=== PATIENT | female | born 1955 ===

== ENCOUNTER 2017-03-14 11:26 | Emergency (ER) | payer MEDICARE, OTHER ==
[2017-03-14 11:26] VITALS: BMI 27.4
--- NOTE | 2017-03-14 12:55 | C.PDOC ---
History Of Present Illness 61 y/o female presents to ED with complaints of cough, runny nose, sore throat and body aches for 2 days. Patient denies fever, travel, n/v/d, SAGE or any other complaints at this time. Time Seen by Provider: 03/14/17 12:00 Chief Complaint (Nursing): Cough, Cold, Congestion History Per: Patient History/Exam Limitations: no limitations Onset/Duration Of Symptoms: Days Current Symptoms Are (Timing): Still Present Past Medical History Reviewed: Historical Data, Nursing Documentation, Vital Signs Vital Signs: Last Vital Signs Temp 97.7 F 03/14/17 13:00 Pulse 57 L 03/14/17 13:00 Resp 18 03/14/17 13:00 BP 115/74 03/14/17 13:00 Pulse Ox 96 03/14/17 13:39 - Medical History PMH: Anemia, HTN, Hyperthyroidism, Rheumatoid Arthritis Denies: Colonic Polyps Surgical History: Denies: Endoscopy Family History: States: No Known Family Hx - Social History Hx Alcohol Use: No Hx Substance Use: No - Immunization History Hx Tetanus Toxoid Vaccination: No Hx Influenza Vaccination: No Hx Pneumococcal Vaccination: No Review Of Systems Except As Marked, All Systems Reviewed And Found Negative. Constitutional: Negative for: Fever, Chills ENT: Positive for: Nose Discharge, Throat Swelling Cardiovascular: Negative for: Chest Pain Respiratory: Positive for: Cough Gastrointestinal: Negative for: Nausea, Vomiting, Diarrhea Skin: Negative for: Rash Physical Exam - Physical Exam Appears: Non-toxic, No Acute Distress Skin: Normal Color, Warm, No Rash Head: Atraumatic, Normacephalic Eye(s): bilateral: Normal Inspection, PERRL, EOMI Ear(s): Bilateral: Normal Oral Mucosa: Moist Throat: Normal, No Erythema, No Exudate Neck: Normal ROM, Supple Chest: Symmetrical, No Tenderness Cardiovascular: Rhythm Regular, No Friction Rub, No Murmur Respiratory: Normal Breath Sounds, No Rales, No Rhonchi, No Stridor, No Wheezing Gastrointestinal/Abdominal: Soft, No Tenderness, No Guarding, No Rebound Extremity: Normal ROM, Capillary Refill (<2 seconds), No Swelling Pulses: Left Radial: Normal, Right Radial: Normal, Left Dorsalis Pedis: Normal, Right Dorsalis Pedis: Normal Neurological/Psych: Oriented x3, Normal Speech, Normal Motor, Normal Sensation Gait: Steady ED Course And Treatment O2 Sat by Pulse Oximetry: 96 (on RA) Pulse Ox Interpretation: Normal Disposition - Disposition Referrals: Sunni Harvey MD [Medical Doctor] - Disposition: HOME/ ROUTINE Disposition Time: 12:51 Condition: GOOD Additional Instructions: Follow up with the medical doctor within 1-2 days. Return if worsened. Prescriptions: Ibuprofen [Motrin] 1 tab PO TID PRN #30 tab PRN Reason: Pain Loratadine [Claritin] 10 mg PO DAILY #10 tab predniSONE [Prednisone] 10 mg PO BID #10 tab Instructions: Pharyngitis (ED) Print Language: GEORGIAN - Clinical Impression Clinical Impression: Viral pharyngitis - Scribe Statement The provider has reviewed the documentation as recorded by the Juliethibfco Grace All medical record entries made by the Kristi were at my direction and personally dictated by me. I have reviewed the chart and agree that the record accurately reflects my personal performance of the history, physical exam, medical decision making, and the department course for this patient. I have also personally directed, reviewed, and agree with the discharge instructions and disposition.
[2017-03-14 13:09] VITALS: BP 115/74; PULSE 57; RESP 18; TEMP 97.7
[2017-03-14 13:35] VITALS: O2SAT 96
== END 2017-03-14 13:00 | disposition home or self-care (01) ==
LOC: C.ER 11:26
DX: J02.9 Acute pharyngitis, unspecified (principal)

== ENCOUNTER 2017-09-17 01:43 | Inpatient (IN) | payer MEDICARE, OTHER ==
[2017-09-17 01:44] VITALS: BMI 27.4
--- NOTE | 2017-09-17 03:17 | C.PDOC ---
History Of Present Illness patient presents with 36 hours of sudden onset of llq abdominal pain. No f/c/n/ v. some dysuria. tolerating po. Pain is intermittent. Time Seen by Provider: 09/17/17 03:16 Chief Complaint (Nursing): Abdominal Pain History Per: Patient History/Exam Limitations: no limitations Onset/Duration Of Symptoms: Days (1) Current Symptoms Are (Timing): Still Present Context: Other Severity: Moderate Pain Scale Rating Of: 4 Location Of Pain/Discomfort: LLQ Radiation Of Pain To:: Flank Quality Of Discomfort: Sharp, Cramping Associated Symptoms: denies: Fever, Chills, Nausea, Vomiting Exacerbating Factors: None Alleviating Factors: None Recent travel outside of the [place]: No Additional History Per: Family Abnormal Vaginal Bleeding: No Past Medical History Reviewed: Historical Data, Nursing Documentation, Vital Signs Vital Signs: Last Vital Signs Temp 98.1 F 09/17/17 05:43 Pulse 57 L 09/17/17 05:43 Resp 18 09/17/17 05:43 BP 162/76 H 09/17/17 05:43 Pulse Ox 97 09/17/17 05:43 - Medical History PMH: Anemia, HTN, Hyperthyroidism, Rheumatoid Arthritis Denies: Colonic Polyps Surgical History: Denies: Endoscopy Family History: States: No Known Family Hx - Social History Hx Alcohol Use: No Hx Substance Use: No - Immunization History Hx Tetanus Toxoid Vaccination: No Hx Influenza Vaccination: No Hx Pneumococcal Vaccination: No Review Of Systems Constitutional: Negative for: Fever, Chills Eyes: Negative for: Redness ENT: Negative for: Throat Pain Cardiovascular: Negative for: Chest Pain Respiratory: Negative for: Shortness of Breath Gastrointestinal: Positive for: Abdominal Pain (llq). Negative for: Nausea, Vomiting Musculoskeletal: Negative for: Back Pain Skin: Negative for: Rash Neurological: Negative for: Weakness Psych: Negative for: Anxiety Physical Exam - Physical Exam Appears: Non-toxic, No Acute Distress Skin: Warm, Dry Head: Normacephalic Eye(s): bilateral: Normal Inspection Oral Mucosa: Moist Neck: Supple Chest: Symmetrical Cardiovascular: Rhythm Regular Respiratory: No Rales, No Rhonchi, No Wheezing Gastrointestinal/Abdominal: Soft, Tenderness (llq), No Distention, No Guarding, No Rebound Back: No CVA Tenderness Extremity: Normal ROM Extremity: Bilateral: Atraumatic Neurological/Psych: Oriented x3, Normal Speech, Normal Cognition Gait: Steady ED Course And Treatment - Laboratory Results Result Diagrams: 09/17/17 04:04 09/17/17 04:04 ECG: Interpreted By Me, Viewed By Me ECG Rhythm: Sinus Rhythm (58), Nonspecific Changes O2 Sat by Pulse Oximetry: 96 Pulse Ox Interpretation: Normal Disposition Counseled Patient/Family Regarding: Studies Performed, Diagnosis - Disposition Disposition Time: 03:17 Condition: FAIR Forms: [facility] (Armenian) - Clinical Impression Clinical Impression: Abdominal pain Physician Patient Turnover Patient Signed Over To: Kamryn Black Handoff Comments: pending ct results and disposition
[2017-09-17 04:10] LABS: BASO # 0.1 K/uL (0.0-0.2)
[2017-09-17 04:12] LABS: SQUAMOUS EPITHIAL 3 /hpf (0-5); URINE BILIRUBIN NEGATIVE (NEGATIVE); URINE BLOOD NEGATIVE (NEGATIVE); URINE CLARITY Clear (Clear); URINE COLOR Straw (YELLOW); URINE GLUCOSE (UA) NORMAL (Normal); URINE LEUKOCYTE ESTERASE TRACE Leu/uL (Negative); URINE NITRATE NEGATIVE (NEGATIVE); URINE PROTEIN NEGATIVE (NEGATIVE); URINE UROBILINOGEN NORMAL mg/dL (0.2-1.0)
[2017-09-17 04:13] LABS: BASO % 1.2 % (0.0-2.0); EOS # 0.1 K/uL (0.0-0.7); EOS % 1.8 % (0.0-4.0); HEMOGLOBIN 12.4 g/dL (11.0-16.0); LYMPH # 2.5 K/uL (1.0-4.3); LYMPH % 30.7 % (20.0-40.0); MEAN CORPUSCULAR HEMOGLOBIN 28.9 pg (27.0-31.0); MEAN PLATELET VOLUME 11.8 fL (7.2-11.7); MONO # 0.6 K/uL (0.0-0.8); MONO % 7.4 % (0.0-10.0); NEUT # 4.7 K/uL (1.8-7.0); NEUT % 58.9 % (50.0-75.0); RBC 4.3 Mil/uL (3.80-5.20); RED CELL DISTRIBUTION WIDTH 14.1 % (11.5-14.5)
[2017-09-17 04:16] LABS: PROTHROMBIN TIME 11.5 SECONDS (9.7-12.2)
[2017-09-17 04:22] LABS: ALB/GLOB RATIO 1.1 (1.0-2.1); ALBUMIN 4.1 g/dL (3.5-5.0); CALCIUM 8.7 mg/dl (8.6-10.4); GFR AFRICAN-AMERICAN > 60; GFR NON-AFRICAN AMERICAN > 60; LIPASE 52 U/L (23-300)
[2017-09-17 04:28] LABS: ALT/SGPT 30 U/L (9-52); AST/SGOT 28 U/L (14-36); BLOOD UREA NITROGEN 12 mg/dL (7-17)
[2017-09-17] MEDS ORDERED: Iodixanol 320 MG/ML 200 ML BOTTLE IV ONE (05:07)
--- NOTE | 2017-09-17 06:51 | CT ---
EXAM: CT Abdomen and Pelvis With Intravenous Contrast EXAM DATE/TIME: 09/17/2017 4:32 AM CLINICAL HISTORY: 62 years old, female; Pain; Abdominal pain; Localized; Left lower quadrant (llq); Additional info: Llq pain TECHNIQUE: Axial computed tomography images of the abdomen and pelvis with intravenous contrast. All CT scans at this facility use one or more dose reduction techniques, viz.: automated exposure control; ma/kV adjustment per patient size (including targeted exams where dose is matched to indication; i.e. head); or iterative reconstruction technique. Coronal and sagittal reformatted images were created and reviewed. CONTRAST: 100 mL of [id number] administered intravenously. COMPARISON: No relevant prior studies available. FINDINGS: LOWER THORAX: No infiltrate seen in the lung bases. ABDOMEN: LIVER: Fatty infiltration of the liver, with areas of focal fatty sparing along the gallbladder fossa. GALLBLADDER AND BILE DUCTS: Mild to moderate gallbladder dilatation. No radioopaque gallstones are seen. No evidence of significant biliary ductal dilatation. PANCREAS: No CT evidence of acute pancreatitis. SPLEEN: No acute abnormality of the spleen identified. ADRENALS: No acute abnormality of the adrenal glands identified. KIDNEYS AND URETERS: No acute abnormality of the kidneys identified. No evidence of significant hydrouereteronephrosis. STOMACH AND BOWEL: Moderate fat stranding and infiltration, consistent with inflammatory change, is seen in the fat adjacent to the distal descending colon. Segmental wall thickening of the colon is also noted in this same area. There is a small amount of nearby fluid in the left retroperitoneal space. The inflammatory changes surround a colonic diverticulum. Findings are most compatible with acute diverticulitis. No evidence of significant focal fluid collection or abscess. No definite nearby extraluminal air seen to suggest perforation. Extensive colonic diverticulosis is noted. Otherwise, no significant abnormality of the bowel is identified. No evidence of small bowel obstruction. No acute abnormality of the stomach or duodenum identified. APPENDIX: Normal appendix is not seen, however, there are no significant inflammatory changes visualized in the expected location of the appendix to suggest appendicitis. Recommend clinical correlation. PELVIS: BLADDER: No acute abnormality of the bladder identified. REPRODUCTIVE: Uterus is surgically absent. No evidence of large adnexal masses. ABDOMEN and PELVIS: INTRAPERITONEAL SPACE: Small amount of free fluid in the pelvis, an abnormal finding in a postmenopausal patient. No evidence of free air. BONES/JOINTS: Bony structures appear demineralized. No acute fractures or other acute bony abnormality noted. SOFT TISSUES: Postsurgical changes involving the anterior pelvic wall. VASCULATURE: No evidence of abdominal aortic aneurysm. No evidence of periaortic hemorrhage. LYMPH NODES: No evidence of diffuse lymphadenopathy. IMPRESSION: - Findings compatible with acute diverticulitis of the distal descending colon. No evidence of abscess formation or perforation. - Small amount of pelvic free fluid. - See above for remaining findings.
[2017-09-17] MEDS ORDERED: metroNIDAZOLE IV 500 mg/100 ml 500 MG/100 ML BAG IVPB SCH (07:00)
[2017-09-17] MEDS ORDERED: metroNIDAZOLE IV 500 mg/100 ml 500 MG/100 ML BAG IVPB STA (07:10)
[2017-09-17] MEDS ORDERED: metroNIDAZOLE IV 500 mg/100 ml 500 MG/100 ML BAG ONE (07:16)
--- NOTE | 2017-09-17 11:16 | CP.PCM.HP ---
Past Patient History - Infectious Disease Hx of Infectious Diseases: None - Past Medical History & Family History Past Medical History?: Yes - Past Social History Smoking Status: Never Smoked - CARDIAC Hx Hypertension: Yes - NEUROLOGICAL Hx Neurological Disorder: Yes Hx Dizziness: Yes Hx Vertigo: Yes - HEENT Hx HEENT Problems: Yes Hx Cataracts: Yes - ENDOCRINE/METABOLIC Hx Hyperthyroidism: Yes - HEMATOLOGICAL/ONCOLOGICAL Hx Anemia: Yes - MUSCULOSKELETAL/RHEUMATOLOGICAL Hx Rheumatoid Arthritis: Yes - GASTROINTESTINAL Hx Gastrointestinal Disorders: No - PSYCHIATRIC Hx Substance Use: No - SURGICAL HISTORY Hx Surgeries: Yes Hx Breast Biopsy: Yes (LEFT) Hx Hysterectomy: Yes - ANESTHESIA Hx Anesthesia: Yes Hx Anesthesia Reactions: No Hx Malignant Hyperthermia: No Meds Allergies/Adverse Reactions: Allergies Allergy/AdvReac Type Severity Reaction Status Date / Time No Known Allergies Allergy Verified 09/17/17 02:55 Results - Vital Signs Recent Vital Signs: Last Vital Signs Temp 98.5 F 09/17/17 07:22 Pulse 58 L 09/17/17 07:22 Resp 16 09/17/17 07:22 BP 128/77 09/17/17 07:22 Pulse Ox 97 09/17/17 07:22 - Labs Result Diagrams: 09/17/17 04:04 09/17/17 04:04 Labs: Laboratory Results - last 24 hr 09/17/17 09/17/17 09/17/17 04:04 04:04 04:04 WBC 8.0 RBC 4.30 Hgb 12.4 Hct 36.5 MCV 85.0 MCH 28.9 MCHC 34.0 RDW 14.1 Plt Count 95 L MPV 11.8 H Neut % (Auto) 58.9 Lymph % (Auto) 30.7 [place] % (Auto) 7.4 Eos % (Auto) 1.8 Baso % (Auto) 1.2 Neut # 4.7 Lymph # 2.5 [place] # 0.6 Eos # 0.1 Baso # 0.1 PT 11.5 INR 1.0 APTT 25 Sodium 135 Potassium 4.4 Chloride 103 Carbon Dioxide 24 Anion Gap 12 BUN 12 Creatinine 0.6 L Est GFR ( Amer) > 60 Est GFR (Non-Af Amer) > 60 Random Glucose 109 H Calcium 8.7 Total Bilirubin 0.9 AST 28 ALT 30 Alkaline Phosphatase 47 Total Protein 7.9 Albumin 4.1 Globulin 3.7 Albumin/Globulin Ratio 1.1 Lipase 52 Urine Color Urine Clarity Urine pH Ur Specific [place] Urine Protein Urine Glucose (UA) Urine Ketones Urine Blood Urine Nitrate Urine Bilirubin Urine Urobilinogen Ur Leukocyte Esterase Urine WBC (Auto) Urine RBC (Auto) Ur Squamous Epith Cells 09/17/17 04:04 WBC RBC Hgb Hct MCV MCH MCHC RDW Plt Count MPV Neut % (Auto) Lymph % (Auto) [place] % (Auto) Eos % (Auto) Baso % (Auto) Neut # Lymph # [place] # Eos # Baso # PT INR APTT Sodium Potassium Chloride Carbon Dioxide Anion Gap BUN Creatinine Est GFR ( Amer) Est GFR (Non-Af Amer) Random Glucose Calcium Total Bilirubin AST ALT Alkaline Phosphatase Total Protein Albumin Globulin Albumin/Globulin Ratio Lipase Urine Color Straw Urine Clarity Clear Urine pH 6.0 Ur Specific [place] 1.006 Urine Protein Negative Urine Glucose (UA) Normal Urine Ketones Negative Urine Blood Negative Urine Nitrate Negative Urine Bilirubin Negative Urine Urobilinogen Normal Ur Leukocyte Esterase Trace Urine WBC (Auto) 2 Urine RBC (Auto) 1 Ur Squamous Epith Cells 3
[2017-09-17] MEDS ORDERED: Ciprofloxacin 400mg/200ml D5W 400 MG/200 ML BAG IVPB ONE (11:20)
[2017-09-17] MEDS: Ciprofloxacin 400mg/200ml D5W 400 MG/200 ML BAG IVPB SCH ×2 (11:23→22:46)
--- NOTE | 2017-09-17 15:56 | CP.PCM.CON ---
History of Present Illness - History of Present Illness History of Present Illness: 62 yo female with PMH HTN HYPOTHYROID admitted with abd pain and found to have diverticulitis of sigmoid solon ewithout perf denies fever chills cough or chest pain Review of Systems - Constitutional Constitutional: As Per HPI, Anorexia, Malaise - EENT Eyes: absent: As Per HPI, Blind Spots, Blurred Vision, Change in Vision, Decreased Night Vision, Diplopia, Discharge, Dry Eye, Exophthalmos, Floaters, Irritation, Itchy Eyes, Loss of Peripheral Vision, Pain, Photophobia, Requires Corrective Lenses, Sees Flashes, Spots in Vision, Tunnel Vision, Other Visual Disturbances, Loss of Vision, Other Ears: absent: As Per HPI, Decreased Hearing, Ear Discharge, Ear Pain, Tinnitus, Abnormal Hearing, Disequilibrium, Dizziness, Other Nose/Mouth/Throat: absent: As Per HPI, Epistaxis, Nasal Congestion, Nasal Discharge, Nasal Obstruction, Nasal Trauma, Nose Pain, Post Nasal Drip, Sinus Pain, Sinus Pressure, Bleeding Gums, Change in Voice, Dental Pain, Dry Mouth, Dysphagia, Halitosis, Hoarsness, Lip Swelling, Mouth Lesions, Mouth Pain, Odynophagia, Sore Throat, Throat Swelling, Tongue Swelling, Facial Pain, Neck Pain, Neck Mass, Other - Breasts Breasts: absent: As Per HPI, Change in Shape, Mass, Pain, Nipple Discharge, Nipple Inversion, Skin Changes, Swelling, Other - Cardiovascular Cardiovascular: absent: As Per HPI, Acrocyanosis, Chest Pain, Chest Pain at Rest , Chest Pain with Activity, Claudication, Diaphoresis, Dyspnea, Dyspnea on Exertion, Edema, Irregular Heart Rhythm, Pain Radiating to Arm/Neck/Jaw, Leg Edema, Leg Ulcers, Lightheadedness, Orthopnea, Palpitations, Paroxysmal Nocturnal Dyspnea, Pedal Edema, Radiating Pain, Rapid Heart Rate, Slow Heart Rate, Syncope, Other - Respiratory Respiratory: absent: As Per HPI, Cough, Dyspnea, Hemoptysis, Dyspnea on Exertion , Wheezing, Snoring, Stridor, Pain on Inspiration, Chest Congestion, Excessive Mucous Production, Change in Mucous Color, Pain with Coughing, Other - Gastrointestinal Gastrointestinal: As Per HPI - Genitourinary Genitourinary: absent: As Per HPI, Change in Urinary Stream, Difficulty Urinating, Dysuria, Flank Pain, Hematuria, Pyuria, Nocturia, Urinary Incontinence, Urinary Frequency, Urinary Hesitance, Urinary Urgency, Voiding Freq/Small Amts, Freq UTI, Hx Renal/Bladder Calculi, Hx /Renal Surgery, Bladder Distension, Other - Reproductive: Female Reproductive:Female: absent: As Per HPI, Amenorrhea, Amenorrhea/ Control, Currently Menstual, Cycle <21 Days, Cycle >35 Days, Cycle Variable, Menses 1-7 Days, Menses >/= 8 Days, Menses Variable, Cycle > 4 Weeks Between, No Menses for 6 Months, Heavy Menses, Light Menses, Normal Menses, Spotting Between Cycles , S/P Hysterectomy, Menopausal, Post Menopausal, Premenarche, Abnormal Vaginal Bleeding, Dysmenorrhea, Dyspareunia, Genital Lesions, Genital Pruritis, Pelvic Pain, Prolapse Symptoms, Sexual Dysfunction, Vaginal Discharge, Vaginal Dryness , Vaginal Odor, Vaginal Pruritis, Other - Menstruation Menstruation: absent: As Per HPI, Amenorrhea, Amenorrhea/ Control, Currently Menstual, Cycle <21 Days, Cycle >35 Days, Cycle Variable, Menses 1-7 Days, Menses >/= 8 Days, Menses Variable, Cycle > 4 Weeks Between, No Menses for 6 Months, Heavy Menses, Light Menses, Normal Menses, Spotting Between Cycles , S/P Hysterectomy, Menopausal, Post Menopausal, Premenarche, Abnormal Vaginal Bleeding, Dysmenorrhea, Other - Musculoskeletal Musculoskeletal: absent: As Per HPI, Abnormal Gait, Arthralgias, Atrophy, Back Pain, Deformity, Joint Swelling, Limited Range of Motion, Loss of Height, Muscle Cramps, Muscle Weakness, Myalgias, Neck Pain, Numbness, Radiating Pain into Limb, Stiffness, Tingling, Other - Integumentary Integumentary: absent: As Per HPI, Acne, Alopecia, Bleeding Lesions, Change in Hair, Change in Nails, Change in Pigmentation, Changing Lesions, Dry Skin, Erythema, Furuncle, Hirsutism, Lesions, New Lesions, Non-Healing Lesions, Photosensitivity, Pruritus, Rash, Skin Pain, Skin Ulcer, Sores, Striae, Swelling , Unusual Bruising, Wounds, Jaundice, Other - Neurological Neurological: absent: As Per HPI, Abnormal Gait, Abnormal Hearing, Abnormal Movements, Abnormal Speech, Behavioral Changes, Burning Sensations, Confusion, Convulsions, Disequilibrium, Dizziness, Numbness, Focal Weakness, Frequent Falls , Headaches, Lack of Coordination, Loss of Vision, Memory Loss, Paresthesias, Radicular Pain, Restless Legs, Sensory Deficit, Syncope, Tingling, Tremor, Vertigo, Weakness, Other Visual Disturbances, Other - Psychiatric Psychiatric: absent: As Per HPI, Abnormal Sleep Pattern, Anhedonia, Anxiety, Auditory Hallucinations, Behavioral Changes, Change in Appetite, Change in Libido, Confusion, Depression, Difficulty Concentrating, Hallucinations, Homicidal Ideation, Hopelessness, Irritability, Memory Loss, Mood Swings, Panic Attacks, Paranoia, Suicidal Ideation, Visual Hallucinations, Tactile Hallucinations, Other - Endocrine Endocrine: absent: As Per HPI, Change in Body Appearance, Change in Libido, Cold Intolorance, Deepening of Voice, Excessive Sweating, Fatigue, Flushing, Heat Intolorance, Increase in Ring/Shoe/Hat Size, Palpitations, Polydipsia, Polyphagia, Polyuria, Other Past Patient History - Infectious Disease Hx of Infectious Diseases: None - Past Medical History & Family History Past Medical History?: Yes - Past Social History Smoking Status: Never Smoked - CARDIAC Hx Hypertension: Yes - NEUROLOGICAL Hx Neurological Disorder: Yes Hx Dizziness: Yes Hx Vertigo: Yes - HEENT Hx HEENT Problems: Yes Hx Cataracts: Yes - ENDOCRINE/METABOLIC Hx Hyperthyroidism: Yes - HEMATOLOGICAL/ONCOLOGICAL Hx Anemia: Yes - MUSCULOSKELETAL/RHEUMATOLOGICAL Hx Falls: No Hx Rheumatoid Arthritis: Yes - GASTROINTESTINAL Hx Gastrointestinal Disorders: No - PSYCHIATRIC Hx Substance Use: No - SURGICAL HISTORY Hx Surgeries: Yes Hx Breast Biopsy: Yes (LEFT) Hx Hysterectomy: Yes - ANESTHESIA Hx Anesthesia: Yes Hx Anesthesia Reactions: No Hx Malignant Hyperthermia: No Meds Allergies/Adverse Reactions: Allergies Allergy/AdvReac Type Severity Reaction Status Date / Time No Known Allergies Allergy Verified 09/17/17 02:55 - Medications Medications: Current Medications Cyanocobalamin (Vitamin B12 100 Mcg Tab) 500 mcg PO DAILY [facility] Enoxaparin Sodium (Lovenox) 40 mg SC DAILY [facility] Ergocalciferol (Drisdol 50,000 Intl Units Cap) 1 cap PO QWK [facility] Ciprofloxacin (Cipro 400mg/200ml Dsw) 400 mg in 200 mls @ 133 mls/hr IVPB Q12H [facility] Last Admin: 09/17/17 11:23 Dose: 133 mls/hr Metronidazole (Flagyl) 500 mg in 100 mls @ 100 mls/hr IVPB Q8 [facility] Ibuprofen (Motrin Tab) 400 mg PO TID PRN PRN Reason: Pain, moderate (4-7) Last Admin: 09/17/17 15:16 Dose: 400 mg Levothyroxine Sodium (Synthroid) 100 mcg PO DAILY [facility] Loratadine (Claritin) 10 mg PO DAILY [facility] Losartan Potassium (Cozaar) 50 mg PO DAILY [facility] Multivitamins (Hexavitamin) 1 tab PO DAILY [facility] Prednisone (Prednisone Tab) 10 mg PO BID [facility] Physical Exam - Constitutional Appears: Non-toxic, Chronically Ill - Head Exam Head Exam: NORMOCEPHALIC - Eye Exam Eye Exam: PERRL. absent: Scleral icterus Pupil Exam: NORMAL ACCOMODATION - ENT Exam ENT Exam: Mucous Membranes Dry, Normal External Ear Exam - Neck Exam Neck exam: Negative for: Lymphadenopathy, Thyromegaly - Respiratory Exam Respiratory Exam: Decreased Breath Sounds, Clear to Auscultation Bilateral - Cardiovascular Exam Cardiovascular Exam: REGULAR RHYTHM, +S1, +S2 - GI/Abdominal Exam GI & Abdominal Exam: Diminished Bowel Sounds, Soft. absent: Tenderness - Rectal Exam Rectal Exam: Deferred - Exam Exam: NORMAL INSPECTION External exam: absent: Erythema - Extremities Exam Extremities exam: Negative for: pedal edema - Back Exam Back exam: absent: CVA tenderness (L), CVA tenderness (R) - Neurological Exam Neurological exam: Alert, CN II-XII Intact, Oriented x3, Reflexes Normal - Psychiatric Exam Psychiatric exam: Normal Mood - Skin Skin Exam: Dry Results - Vital Signs Recent Vital Signs: Last Vital Signs Temp 98.3 F 09/17/17 11:50 Pulse 60 09/17/17 11:50 Resp 16 09/17/17 11:50 BP 135/80 09/17/17 11:50 Pulse Ox 98 09/17/17 11:50 - Labs Result Diagrams: 09/17/17 04:04 09/17/17 04:04 Labs: Laboratory Results - last 24 hr 09/17/17 09/17/17 09/17/17 04:04 04:04 04:04 WBC 8.0 RBC 4.30 Hgb 12.4 Hct 36.5 MCV 85.0 MCH 28.9 MCHC 34.0 RDW 14.1 Plt Count 95 L MPV 11.8 H Neut % (Auto) 58.9 Lymph % (Auto) 30.7 [place] % (Auto) 7.4 Eos % (Auto) 1.8 Baso % (Auto) 1.2 Neut # 4.7 Lymph # 2.5 [place] # 0.6 Eos # 0.1 Baso # 0.1 PT 11.5 INR 1.0 APTT 25 Sodium 135 Potassium 4.4 Chloride 103 Carbon Dioxide 24 Anion Gap 12 BUN 12 Creatinine 0.6 L Est GFR ( Amer) > 60 Est GFR (Non-Af Amer) > 60 Random Glucose 109 H Calcium 8.7 Total Bilirubin 0.9 AST 28 ALT 30 Alkaline Phosphatase 47 Total Protein 7.9 Albumin 4.1 Globulin 3.7 Albumin/Globulin Ratio 1.1 Lipase 52 Urine Color Urine Clarity Urine pH Ur Specific [place] Urine Protein Urine Glucose (UA) Urine Ketones Urine Blood Urine Nitrate Urine Bilirubin Urine Urobilinogen Ur Leukocyte Esterase Urine WBC (Auto) Urine RBC (Auto) Ur Squamous Epith Cells 09/17/17 04:04 WBC RBC Hgb Hct MCV MCH MCHC RDW Plt Count MPV Neut % (Auto) Lymph % (Auto) [place] % (Auto) Eos % (Auto) Baso % (Auto) Neut # Lymph # [place] # Eos # Baso # PT INR APTT Sodium Potassium Chloride Carbon Dioxide Anion Gap BUN Creatinine Est GFR ( Amer) Est GFR (Non-Af Amer) Random Glucose Calcium Total Bilirubin AST ALT Alkaline Phosphatase Total Protein Albumin Globulin Albumin/Globulin Ratio Lipase Urine Color Straw Urine Clarity Clear Urine pH 6.0 Ur Specific [place] 1.006 Urine Protein Negative Urine Glucose (UA) Normal Urine Ketones Negative Urine Blood Negative Urine Nitrate Negative Urine Bilirubin Negative Urine Urobilinogen Normal Ur Leukocyte Esterase Trace Urine WBC (Auto) 2 Urine RBC (Auto) 1 Ur Squamous Epith Cells 3 Assessment & Plan (1) Abdominal pain Status: Acute (2) Acute diverticulitis Status: Acute - Assessment and Plan (Free Text) Assessment: thrombocytopenia - etiology ? acute diverticultis w/o perf or abscess cont iv antibiotics GI eval as out pt to r/o malignancy
--- NOTE | 2017-09-17 17:34 | CP.PCM.CON ---
History of Present Illness - History of Present Illness History of Present Illness: This is a 62 year old woman admitted with abdominal pain. Patient was diagnosed with diverticulitis two months ago which was treated with oral antibiotics. She did well until Monday, when she noted one episode of watery diarrhea, without bleeding. This was followed by LLQ pain, mild, described as pressure, and exacerbated by walking and urinating. She denies having fever, but developed chills yesterday and presented to the ER early this morning. She was afebrile, WBC count was normal, but CT scan showed infiltration of the fat adjacent to the distal descending colon with a small amount of fluid in the retroperitoneal space, consistent with diverticulitis. Patient denies having nausea, vomiting, difficulty swallowing, heartburn, rectal bleeding or constipation. Her appetite has been poor for the past few days, but her weight is stable. EGD was performed 06/01/2016 and showed reflux esophagitis, hiatal hernia and nonerosive gastritis. Colonoscopy was performed last year, but the results are not available. Review of Systems - Review of Systems All systems: reviewed and no additional remarkable complaints except - Constitutional Constitutional: Chills. absent: Fever - EENT Nose/Mouth/Throat: absent: Sore Throat - Cardiovascular Cardiovascular: absent: Chest Pain - Respiratory Respiratory: absent: Dyspnea - Gastrointestinal Gastrointestinal: Abdominal Pain, Diarrhea. absent: Constipation, Dysphagia, Heartburn, Hematochezia, Nausea, Vomiting - Musculoskeletal Musculoskeletal: absent: Back Pain Past Patient History - Infectious Disease Hx of Infectious Diseases: None - Past Medical History & Family History Past Medical History?: Yes - Past Social History Smoking Status: Never Smoked - CARDIAC Hx Hypertension: Yes - NEUROLOGICAL Hx Neurological Disorder: Yes Hx Dizziness: Yes Hx Vertigo: Yes - HEENT Hx HEENT Problems: Yes Hx Cataracts: Yes - ENDOCRINE/METABOLIC Hx Hyperthyroidism: Yes - HEMATOLOGICAL/ONCOLOGICAL Hx Anemia: Yes - MUSCULOSKELETAL/RHEUMATOLOGICAL Hx Falls: No Hx Rheumatoid Arthritis: Yes - GASTROINTESTINAL Hx Gastrointestinal Disorders: No - PSYCHIATRIC Hx Substance Use: No - SURGICAL HISTORY Hx Surgeries: Yes Hx Breast Biopsy: Yes (LEFT) Hx Hysterectomy: Yes - ANESTHESIA Hx Anesthesia: Yes Hx Anesthesia Reactions: No Hx Malignant Hyperthermia: No Meds Allergies/Adverse Reactions: Allergies Allergy/AdvReac Type Severity Reaction Status Date / Time No Known Allergies Allergy Verified 09/17/17 02:55 - Medications Medications: Current Medications Cyanocobalamin (Vitamin B12 100 Mcg Tab) 500 mcg PO DAILY [facility] Enoxaparin Sodium (Lovenox) 40 mg SC DAILY [facility] Ergocalciferol (Drisdol 50,000 Intl Units Cap) 1 cap PO QWK [facility] Ciprofloxacin (Cipro 400mg/200ml Dsw) 400 mg in 200 mls @ 133 mls/hr IVPB Q12H [facility] Last Admin: 09/17/17 11:23 Dose: 133 mls/hr Metronidazole (Flagyl) 500 mg in 100 mls @ 100 mls/hr IVPB Q8 [facility] Ibuprofen (Motrin Tab) 400 mg PO TID PRN PRN Reason: Pain, moderate (4-7) Last Admin: 09/17/17 15:16 Dose: 400 mg Levothyroxine Sodium (Synthroid) 100 mcg PO DAILY [facility] Loratadine (Claritin) 10 mg PO DAILY [facility] Losartan Potassium (Cozaar) 50 mg PO DAILY [facility] Multivitamins (Hexavitamin) 1 tab PO DAILY [facility] Prednisone (Prednisone Tab) 10 mg PO BID [facility] Physical Exam - Constitutional Appears: No Acute Distress - Head Exam Head Exam: ATRAUMATIC - Eye Exam Eye Exam: EOMI, PERRL - Neck Exam Neck exam: Negative for: Lymphadenopathy, Thyromegaly - Respiratory Exam Respiratory Exam: NORMAL BREATHING PATTERN. absent: Rales, Rhonchi, Wheezes - Cardiovascular Exam Cardiovascular Exam: REGULAR RHYTHM, +S1, +S2. absent: Gallop, Rubs, Systolic Murmur - GI/Abdominal Exam GI & Abdominal Exam: Normal Bowel Sounds, Soft, Tenderness. absent: Guarding, Organomegaly Additional comments: Mild tenderness to palpation in LLQ without rebound - Rectal Exam Rectal Exam: Deferred - Extremities Exam Extremities exam: Negative for: calf tenderness, pedal edema Results - Vital Signs Recent Vital Signs: Last Vital Signs Temp 98.6 F 09/17/17 15:20 Pulse 61 09/17/17 15:20 Resp 20 09/17/17 15:20 BP 117/73 09/17/17 15:20 Pulse Ox 96 09/17/17 15:20 - Labs Result Diagrams: 09/17/17 04:04 09/17/17 04:04 Labs: Laboratory Results - last 24 hr 09/17/17 09/17/17 09/17/17 04:04 04:04 04:04 WBC 8.0 RBC 4.30 Hgb 12.4 Hct 36.5 MCV 85.0 MCH 28.9 MCHC 34.0 RDW 14.1 Plt Count 95 L MPV 11.8 H Neut % (Auto) 58.9 Lymph % (Auto) 30.7 [place] % (Auto) 7.4 Eos % (Auto) 1.8 Baso % (Auto) 1.2 Neut # 4.7 Lymph # 2.5 [place] # 0.6 Eos # 0.1 Baso # 0.1 PT 11.5 INR 1.0 APTT 25 Sodium 135 Potassium 4.4 Chloride 103 Carbon Dioxide 24 Anion Gap 12 BUN 12 Creatinine 0.6 L Est GFR ( Amer) > 60 Est GFR (Non-Af Amer) > 60 Random Glucose 109 H Calcium 8.7 Total Bilirubin 0.9 AST 28 ALT 30 Alkaline Phosphatase 47 Total Protein 7.9 Albumin 4.1 Globulin 3.7 Albumin/Globulin Ratio 1.1 Lipase 52 Urine Color Urine Clarity Urine pH Ur Specific [place] Urine Protein Urine Glucose (UA) Urine Ketones Urine Blood Urine Nitrate Urine Bilirubin Urine Urobilinogen Ur Leukocyte Esterase Urine WBC (Auto) Urine RBC (Auto) Ur Squamous Epith Cells 09/17/17 04:04 WBC RBC Hgb Hct MCV MCH MCHC RDW Plt Count MPV Neut % (Auto) Lymph % (Auto) [place] % (Auto) Eos % (Auto) Baso % (Auto) Neut # Lymph # [place] # Eos # Baso # PT INR APTT Sodium Potassium Chloride Carbon Dioxide Anion Gap BUN Creatinine Est GFR ( Amer) Est GFR (Non-Af Amer) Random Glucose Calcium Total Bilirubin AST ALT Alkaline Phosphatase Total Protein Albumin Globulin Albumin/Globulin Ratio Lipase Urine Color Straw Urine Clarity Clear Urine pH 6.0 Ur Specific [place] 1.006 Urine Protein Negative Urine Glucose (UA) Normal Urine Ketones Negative Urine Blood Negative Urine Nitrate Negative Urine Bilirubin Negative Urine Urobilinogen Normal Ur Leukocyte Esterase Trace Urine WBC (Auto) 2 Urine RBC (Auto) 1 Ur Squamous Epith Cells 3 Assessment & Plan (1) LLQ abdominal pain Assessment and Plan: Patient presents with LLQ pain and evidence of diverticulitis on CT scan. Will continue IV antibiotics and limit diet to clear liquids for now. Status: Acute
[2017-09-17] MEDS: metroNIDAZOLE IV 500 mg/100 ml 500 MG/100 ML BAG IVPB SCH (21:11)
[2017-09-18] MEDS: metroNIDAZOLE IV 500 mg/100 ml 500 MG/100 ML BAG IVPB SCH ×3 (05:46→22:29)
[2017-09-18] MEDS: Levothyroxine 100 MCG TAB PO SCH (05:47)
[2017-09-18 07:39] LABS: BASO % 0.5 % (0.0-2.0); EOS % 0.5 % (0.0-4.0); LYMPH # 1.9 K/uL (1.0-4.3); LYMPH % 32.6 % (20.0-40.0); MEAN CORPUSCULAR HEMOGLOBIN 28.8 pg (27.0-31.0); MEAN CORPUSCULAR HGB CONC 33.5 g/dL (33.0-37.0); MEAN PLATELET VOLUME 11.8 fL (7.2-11.7); MONO # 0.4 K/uL (0.0-0.8); MONO % 6.7 % (0.0-10.0); NEUT # 3.5 K/uL (1.8-7.0); NEUT % 59.7 % (50.0-75.0); RBC 4.17 Mil/uL (3.80-5.20); RED CELL DISTRIBUTION WIDTH 14.3 % (11.5-14.5); WHITE BLOOD COUNT 5.9 K/uL (4.8-10.8)
[2017-09-18 08:35] LABS: ALB/GLOB RATIO 1.1 (1.0-2.1); ALBUMIN 3.8 g/dL (3.5-5.0); ALT/SGPT 30 U/L (9-52); AST/SGOT 18 U/L (14-36); BLOOD UREA NITROGEN 10 mg/dL (7-17); CALCIUM 8.3 mg/dl (8.6-10.4); GFR AFRICAN-AMERICAN > 60; GFR NON-AFRICAN AMERICAN > 60
[2017-09-18] MEDS ORDERED: Enoxaparin 40 mg Syringe SC SCH (10:00)
--- NOTE | 2017-09-18 10:44 | CP.PCM.PN ---
Subjective - Date & Time of Evaluation Date of Evaluation: 09/18/17 Time of Evaluation: 10:41 - Subjective Subjective: Dr Portillo note appreciated in my absence. Patient reports itching and allergy to Cipro. No PCN allergy. Pain a little less. Objective - Vital Signs/Intake and Output Vital Signs (last 24 hours): Temp Pulse Resp BP Pulse Ox 98.1 F 64 20 129/84 98 09/18/17 08:56 09/18/17 08:56 09/18/17 08:56 09/18/17 08:56 09/18/17 08:56 Intake and Output: 09/18/17 09/18/17 06:59 18:59 Intake Total 780 Balance 780 - Medications Medications: Current Medications Cyanocobalamin (Vitamin B12 100 Mcg Tab) 500 mcg PO DAILY [facility] Ergocalciferol (Drisdol 50,000 Intl Units Cap) 1 cap PO QWK [facility] Ciprofloxacin (Cipro 400mg/200ml Dsw) 400 mg in 200 mls @ 133 mls/hr IVPB Q12H [facility] Last Admin: 09/17/17 22:46 Dose: 133 mls/hr Metronidazole (Flagyl) 500 mg in 100 mls @ 100 mls/hr IVPB Q8 [facility] Last Admin: 09/18/17 05:46 Dose: 100 mls/hr Ibuprofen (Motrin Tab) 400 mg PO TID PRN PRN Reason: Pain, moderate (4-7) Last Admin: 09/17/17 15:16 Dose: 400 mg Levothyroxine Sodium (Synthroid) 100 mcg PO DAILY@0630 [facility] Last Admin: 09/18/17 05:47 Dose: 100 mcg Loratadine (Claritin) 10 mg PO DAILY [facility] Losartan Potassium (Cozaar) 50 mg PO DAILY [facility] Multivitamins (Hexavitamin) 1 tab PO DAILY [facility] Prednisone (Prednisone Tab) 10 mg PO BID [facility] Last Admin: 09/17/17 17:29 Dose: 10 mg - Labs Labs: 09/18/17 07:23 09/18/17 07:23 PT 11.5 SECONDS (9.7-12.2) 09/17/17 04:04 INR 1.0 09/17/17 04:04 APTT 25 SECONDS (21-34) 09/17/17 04:04 - Constitutional Appears: No Acute Distress - Head Exam Head Exam: ATRAUMATIC, NORMOCEPHALIC - Eye Exam Eye Exam: EOMI, PERRL - Respiratory Exam Respiratory Exam: NORMAL BREATHING PATTERN - Cardiovascular Exam Cardiovascular Exam: REGULAR RHYTHM, +S1 - GI/Abdominal Exam GI & Abdominal Exam: Guarding, Soft, Tenderness, Normal Bowel Sounds Additional comments: Obese with LLQ guarding to deep palpation. No rebound or mass. - Extremities Exam Extremities Exam: Normal Inspection Assessment and Plan (1) Diverticulitis large intestine Assessment & Plan: Recurrent Diverticulitis following out patient treatment of the same last year. Continue IV abx for 2-3 days until pain free but will switch to Zosyn due to possible Quinalone allergy. NPO for now with IV fluids. Advance diet as symptoms improve. Status: Acute (2) LLQ abdominal pain Status: Acute
[2017-09-18] MEDS: Ciprofloxacin 400mg/200ml D5W 400 MG/200 ML BAG IVPB SCH (10:55)
[2017-09-18] MEDS: Multiple Vitamins Tab PO SCH (10:55)
--- NOTE | 2017-09-18 11:27 | CP.PCM.PN ---
Subjective - Date & Time of Evaluation Date of Evaluation: 09/18/17 Time of Evaluation: 09:00 - Subjective Subjective: FAILED OUT PT ANTIBIOTICS - UNCLEAR WHAT TYPE ? HX lupus, ITP on steroids ( low dose) improving for now less pain no fever Objective - Vital Signs/Intake and Output Vital Signs (last 24 hours): Temp Pulse Resp BP Pulse Ox 98.1 F 64 20 129/84 98 09/18/17 08:56 09/18/17 08:56 09/18/17 08:56 09/18/17 08:56 09/18/17 08:56 Intake and Output: 09/18/17 09/18/17 06:59 18:59 Intake Total 780 Balance 780 - Medications Medications: Current Medications Cyanocobalamin (Vitamin B12 100 Mcg Tab) 500 mcg PO DAILY [facility] Last Admin: 09/18/17 11:04 Dose: 500 mcg Ergocalciferol (Drisdol 50,000 Intl Units Cap) 1 cap PO QWK [facility] Ciprofloxacin (Cipro 400mg/200ml Dsw) 400 mg in 200 mls @ 133 mls/hr IVPB Q12H [facility] Last Admin: 09/18/17 10:55 Dose: 133 mls/hr Metronidazole (Flagyl) 500 mg in 100 mls @ 100 mls/hr IVPB Q8 [facility] Last Admin: 09/18/17 05:46 Dose: 100 mls/hr Ibuprofen (Motrin Tab) 400 mg PO TID PRN PRN Reason: Pain, moderate (4-7) Last Admin: 09/17/17 15:16 Dose: 400 mg Levothyroxine Sodium (Synthroid) 100 mcg PO DAILY@0630 [facility] Last Admin: 09/18/17 05:47 Dose: 100 mcg Loratadine (Claritin) 10 mg PO DAILY [facility] Last Admin: 09/18/17 10:55 Dose: 10 mg Losartan Potassium (Cozaar) 50 mg PO DAILY [facility] Last Admin: 09/18/17 10:55 Dose: 50 mg Multivitamins (Hexavitamin) 1 tab PO DAILY [facility] Last Admin: 09/18/17 10:55 Dose: 1 tab Prednisone (Prednisone Tab) 10 mg PO BID [facility] Last Admin: 09/18/17 10:55 Dose: 10 mg - Labs Labs: 09/18/17 07:23 09/18/17 07:23 PT 11.5 SECONDS (9.7-12.2) 09/17/17 04:04 INR 1.0 09/17/17 04:04 APTT 25 SECONDS (21-34) 09/17/17 04:04 - Constitutional Appears: Non-toxic, Chronically Ill - Head Exam Head Exam: NORMOCEPHALIC - Eye Exam Eye Exam: PERRL - ENT Exam ENT Exam: Mucous Membranes Dry - Neck Exam Neck Exam: absent: Lymphadenopathy - Respiratory Exam Respiratory Exam: Decreased Breath Sounds - Cardiovascular Exam Cardiovascular Exam: REGULAR RHYTHM - GI/Abdominal Exam GI & Abdominal Exam: Distended, Soft - Rectal Exam Rectal Exam: Deferred - Exam Exam: NORMAL INSPECTION - Extremities Exam Extremities Exam: absent: Pedal Edema - Back Exam Back Exam: absent: CVA tenderness (L), CVA tenderness (R) - Neurological Exam Neurological Exam: Alert, Awake, Oriented x3 Assessment and Plan (1) Abdominal pain Status: Acute (2) Acute diverticulitis Status: Acute
[2017-09-18] MEDS: DiphenhydrAMINE 50 mg/ml Inj IVP STA ×2 (12:30→12:35)
[2017-09-18] MEDS: Piperacill/Tazo 3.375gm in Dex 3.375 GM/50 ML BAG IVPB SCH (18:57)
[2017-09-18] MEDS: Aztreonam 1 GM in Sodium Chloride 0.9% 100 ML IVPB SCH (18:58)
--- NOTE | 2017-09-18 19:14 | CP.PCM.PN ---
Subjective - Date & Time of Evaluation Date of Evaluation: 09/18/17 Time of Evaluation: 08:20 - Subjective Subjective: clinically same Objective - Vital Signs/Intake and Output Vital Signs (last 24 hours): Temp Pulse Resp BP Pulse Ox 98.4 F 62 18 128/65 97 09/18/17 15:17 09/18/17 15:17 09/18/17 15:17 09/18/17 15:17 09/18/17 15:17 Intake and Output: 09/18/17 09/19/17 18:59 06:59 Intake Total 350 Balance 350 - Medications Medications: Current Medications Cyanocobalamin (Vitamin B12 100 Mcg Tab) 500 mcg PO DAILY [facility] Last Admin: 09/18/17 11:04 Dose: 500 mcg Ergocalciferol (Drisdol 50,000 Intl Units Cap) 1 cap PO QWK [facility] Metronidazole (Flagyl) 500 mg in 100 mls @ 100 mls/hr IVPB Q8 [facility] Last Admin: 09/18/17 13:09 Dose: Not Given Piperacillin Sod/Tazobactam Sod (Zosyn 3.375 Gm Iv Premix) 3.375 gm in 50 mls @ 100 mls/hr IVPB Q6H [facility] Last Admin: 09/18/17 18:57 Dose: 100 mls/hr Aztreonam 1 gm/ Sodium (Chloride) 100 mls @ 100 mls/hr IVPB Q8H [facility] Last Admin: 09/18/17 18:58 Dose: 100 mls/hr Levothyroxine Sodium (Synthroid) 100 mcg PO DAILY@0630 [facility] Last Admin: 09/18/17 05:47 Dose: 100 mcg Loratadine (Claritin) 10 mg PO DAILY [facility] Last Admin: 09/18/17 10:55 Dose: 10 mg Losartan Potassium (Cozaar) 50 mg PO DAILY [facility] Last Admin: 09/18/17 10:55 Dose: 50 mg Multivitamins (Hexavitamin) 1 tab PO DAILY [facility] Last Admin: 09/18/17 10:55 Dose: 1 tab Prednisone (Prednisone Tab) 10 mg PO BID [facility] Last Admin: 09/18/17 17:02 Dose: 10 mg - Labs Labs: 09/18/17 07:23 09/18/17 07:23 PT 11.5 SECONDS (9.7-12.2) 09/17/17 04:04 INR 1.0 09/17/17 04:04 APTT 25 SECONDS (21-34) 09/17/17 04:04 - Constitutional Appears: Well - Head Exam Head Exam: ATRAUMATIC, NORMAL INSPECTION, NORMOCEPHALIC - Eye Exam Eye Exam: EOMI, Normal appearance, PERRL Pupil Exam: NORMAL ACCOMODATION, PERRL - ENT Exam ENT Exam: Mucous Membranes Moist, Normal Exam - Neck Exam Neck Exam: Full ROM, Normal Inspection. absent: Lymphadenopathy - Respiratory Exam Respiratory Exam: Decreased Breath Sounds - Cardiovascular Exam Cardiovascular Exam: REGULAR RHYTHM, +S1, +S2 - GI/Abdominal Exam GI & Abdominal Exam: Soft, Diminished Bowel Sounds - Rectal Exam Rectal Exam: Deferred
[2017-09-19] MEDS: Piperacill/Tazo 3.375gm in Dex 3.375 GM/50 ML BAG IVPB SCH ×2 (00:05→05:02)
[2017-09-19] MEDS: Aztreonam 1 GM in Sodium Chloride 0.9% 100 ML IVPB SCH ×3 (03:25→18:01)
[2017-09-19] MEDS: metroNIDAZOLE IV 500 mg/100 ml 500 MG/100 ML BAG IVPB SCH ×3 (05:00→21:01)
[2017-09-19] MEDS: Levothyroxine 100 MCG TAB PO SCH (06:07)
[2017-09-19 07:41] LABS: BASO % 0.3 % (0.0-2.0); EOS % 0.6 % (0.0-4.0); HEMOGLOBIN 12.6 g/dL (11.0-16.0); LYMPH # 2.5 K/uL (1.0-4.3); LYMPH % 36.3 % (20.0-40.0); MEAN CELL VOLUME 86.8 fL (81.0-99.0); MEAN CORPUSCULAR HEMOGLOBIN 28.8 pg (27.0-31.0); MEAN CORPUSCULAR HGB CONC 33.2 g/dL (33.0-37.0); MEAN PLATELET VOLUME 11.7 fL (7.2-11.7); MONO # 0.5 K/uL (0.0-0.8); MONO % 7.5 % (0.0-10.0); NEUT # 3.9 K/uL (1.8-7.0); NEUT % 55.3 % (50.0-75.0); NRBC % 0.1 % (0.0-2.0); RBC 4.37 Mil/uL (3.80-5.20); RED CELL DISTRIBUTION WIDTH 14.4 % (11.5-14.5)
[2017-09-19 07:59] LABS: ALB/GLOB RATIO 1.2 (1.0-2.1); ALT/SGPT 23 U/L (9-52); AST/SGOT 17 U/L (14-36); BLOOD UREA NITROGEN 9 mg/dL (7-17); CALCIUM 8.1 mg/dl (8.6-10.4); GFR AFRICAN-AMERICAN > 60; GFR NON-AFRICAN AMERICAN > 60
[2017-09-19 08:08] VITALS: RESP 20
[2017-09-19] MEDS: Multiple Vitamins Tab PO SCH (09:59)
--- NOTE | 2017-09-19 10:37 | CP.PCM.PN ---
Subjective - Date & Time of Evaluation Date of Evaluation: 09/19/17 Time of Evaluation: 10:35 - Subjective Subjective: PGY-[address] Wakefield's service: Pt seen and examined at bedside. Nursing reports no acute events overnight. Patient reports her LLQ abdominal pain has almost subsided. She denies nausea, vomiting, fever, chills overnight. She states she feels able to attempt regular diet. Objective - Vital Signs/Intake and Output Vital Signs (last 24 hours): Temp Pulse Resp BP Pulse Ox 98.3 F 50 L 20 116/54 L 95 09/19/17 07:00 09/19/17 07:00 09/19/17 07:00 09/19/17 07:00 09/19/17 07:00 Intake and Output: 09/19/17 09/19/17 06:59 18:59 Intake Total 1530 Balance 1530 - Medications Medications: Current Medications Cyanocobalamin (Vitamin B12 100 Mcg Tab) 500 mcg PO DAILY [facility] Last Admin: 09/19/17 10:03 Dose: 500 mcg Ergocalciferol (Drisdol 50,000 Intl Units Cap) 1 cap PO QWK [facility] Metronidazole (Flagyl) 500 mg in 100 mls @ 100 mls/hr IVPB Q8 [facility] Last Admin: 09/19/17 05:00 Dose: 100 mls/hr Piperacillin Sod/Tazobactam Sod (Zosyn 3.375 Gm Iv Premix) 3.375 gm in 50 mls @ 100 mls/hr IVPB Q6H [facility] Last Admin: 09/19/17 05:02 Dose: 100 mls/hr Aztreonam 1 gm/ Sodium (Chloride) 100 mls @ 100 mls/hr IVPB Q8H [facility] Last Admin: 09/19/17 09:59 Dose: 100 mls/hr Levothyroxine Sodium (Synthroid) 100 mcg PO DAILY@0630 [facility] Last Admin: 09/19/17 06:07 Dose: 100 mcg Loratadine (Claritin) 10 mg PO DAILY [facility] Last Admin: 09/19/17 09:59 Dose: 10 mg Losartan Potassium (Cozaar) 50 mg PO DAILY [facility] Last Admin: 09/19/17 09:59 Dose: 50 mg Multivitamins (Hexavitamin) 1 tab PO DAILY [facility] Last Admin: 09/19/17 09:59 Dose: 1 tab Prednisone (Prednisone Tab) 10 mg PO BID [facility] Last Admin: 09/19/17 09:59 Dose: 10 mg - Labs Labs: 09/19/17 07:21 09/19/17 07:21 PT 11.5 SECONDS (9.7-12.2) 09/17/17 04:04 INR 1.0 09/17/17 04:04 APTT 25 SECONDS (21-34) 09/17/17 04:04 - Constitutional Appears: Non-toxic, No Acute Distress - Head Exam Head Exam: ATRAUMATIC, NORMAL INSPECTION - Eye Exam Eye Exam: EOMI, Normal appearance. absent: Scleral icterus Pupil Exam: PERRL - ENT Exam ENT Exam: Mucous Membranes Moist - Respiratory Exam Respiratory Exam: Clear to Ausculation Bilateral, NORMAL BREATHING PATTERN. absent: Rales, Rhonchi, Wheezes - Cardiovascular Exam Cardiovascular Exam: REGULAR RHYTHM, +S1, +S2 - GI/Abdominal Exam GI & Abdominal Exam: Soft, Tenderness (minimal LLQ), Normal Bowel Sounds - Extremities Exam Extremities Exam: Normal Inspection. absent: Pedal Edema, Tenderness - Back Exam Back Exam: absent: CVA tenderness (L), CVA tenderness (R) - Neurological Exam Neurological Exam: Alert, Awake, Oriented x3 - Psychiatric Exam Psychiatric exam: Normal Affect, Normal Mood - Skin Skin Exam: Dry, Normal Color, Warm Assessment and Plan - Assessment and Plan (Free Text) Plan: Diverticulitis Admitted to [facility] on 09/17/17 Prior diverticulitis 2 months ago - treated with oral antibiotics, but failed therapy Previous EGD (05/2016): esophagitis, hiatal hernia and nonerosive gastritis Pt afebrile, no WBC CT A/P (09/17/17): Diverticulitis of sigmoid without perforation. Small amt of free pelvic fluid (see full report) Dr. Mccracken, ID regional engagement consultant, help appreciated Flagyl 500mg IV Q8H (start 09/17/17, Day 3) Zosyn 3.375gm IV Q6H (start 09/18/17, Day 2) Aztreonam 1 gm IV Q8H (start 09/18/17, Day 2) - Cipro 400mg IV Q12H stopped (pt allergic reaction - started 09/17/17, received one day) GI regional engagement consultant, Dr. Cummings/Moy, help appreciated - Would change to po tomorrow (09/20), send home on Augmentin and Flagyl. Possible discharge if pt stable - ADAT HTN Well controlled Continue home Losartan 50mg PO Daily Hypothyroid Continue home Synthroid 100mcg PO Daily Vit D deficiency Ergo 50k 1 cap Qwkly (start 09/23/17) Hx of lupus ESR 62 Continue home Prednisone 10mg PO BID Thrombocytopenia Plt 100k today Hold heparin B12 Deficiency Continue home B12 500mcg PO Daily Prophylaxis SCDs Protonix 40mg PO daily HOLD anticoag due to low platelets Klever Lo PGY2 All medical management per DR. Chelsea Wakefield
--- NOTE | 2017-09-19 11:14 | CP.PCM.PN ---
Subjective - Date & Time of Evaluation Date of Evaluation: 09/19/17 Time of Evaluation: 11:11 - Subjective Subjective: No pain today. Had normal stool as well. Now on Flagyl, Zosyn and Azactam (by PMD) Objective - Vital Signs/Intake and Output Vital Signs (last 24 hours): Temp Pulse Resp BP Pulse Ox 98.3 F 50 L 20 116/54 L 95 09/19/17 07:00 09/19/17 07:00 09/19/17 07:00 09/19/17 07:00 09/19/17 07:00 Intake and Output: 09/19/17 09/19/17 06:59 18:59 Intake Total 1530 Balance 1530 - Medications Medications: Current Medications Cyanocobalamin (Vitamin B12 100 Mcg Tab) 500 mcg PO DAILY [facility] Last Admin: 09/19/17 10:03 Dose: 500 mcg Ergocalciferol (Drisdol 50,000 Intl Units Cap) 1 cap PO QWK [facility] Metronidazole (Flagyl) 500 mg in 100 mls @ 100 mls/hr IVPB Q8 [facility] Last Admin: 09/19/17 05:00 Dose: 100 mls/hr Piperacillin Sod/Tazobactam Sod (Zosyn 3.375 Gm Iv Premix) 3.375 gm in 50 mls @ 100 mls/hr IVPB Q6H [facility] Last Admin: 09/19/17 05:02 Dose: 100 mls/hr Aztreonam 1 gm/ Sodium (Chloride) 100 mls @ 100 mls/hr IVPB Q8H [facility] Last Admin: 09/19/17 09:59 Dose: 100 mls/hr Levothyroxine Sodium (Synthroid) 100 mcg PO DAILY@0630 [facility] Last Admin: 09/19/17 06:07 Dose: 100 mcg Loratadine (Claritin) 10 mg PO DAILY [facility] Last Admin: 09/19/17 09:59 Dose: 10 mg Losartan Potassium (Cozaar) 50 mg PO DAILY [facility] Last Admin: 09/19/17 09:59 Dose: 50 mg Multivitamins (Hexavitamin) 1 tab PO DAILY [facility] Last Admin: 09/19/17 09:59 Dose: 1 tab Pantoprazole Sodium (Protonix Ec Tab) 40 mg PO DAILY [facility] Prednisone (Prednisone Tab) 10 mg PO BID [facility] Last Admin: 09/19/17 09:59 Dose: 10 mg - Labs Labs: 09/19/17 07:21 09/19/17 07:21 PT 11.5 SECONDS (9.7-12.2) 09/17/17 04:04 INR 1.0 09/17/17 04:04 APTT 25 SECONDS (21-34) 09/17/17 04:04 - Constitutional Appears: No Acute Distress - Head Exam Head Exam: ATRAUMATIC, NORMOCEPHALIC - Eye Exam Eye Exam: EOMI, PERRL - Respiratory Exam Respiratory Exam: Clear to Ausculation Bilateral, NORMAL BREATHING PATTERN - Cardiovascular Exam Cardiovascular Exam: REGULAR RHYTHM, +S1 - GI/Abdominal Exam GI & Abdominal Exam: Soft, Normal Bowel Sounds. absent: Distended, Firm, Tenderness, Mass, Rebound Additional comments: Obese - Extremities Exam Extremities Exam: Normal Inspection Assessment and Plan (1) Diverticulitis large intestine Assessment & Plan: Patient clinically better but unclear of need for addition of Azactam to Zosyn and Flagyl. Concern for C diff development. Will await ID follow up for short and watermaster antibiotic adjustment. Would send home on Augmentin and Flagyl and change to po tomorrow for possible discharge if stable. Advance diet to soft today and observe. Status: Acute (2) LLQ abdominal pain Status: Resolved
--- NOTE | 2017-09-19 12:28 | CP.PCM.PN ---
Subjective - Date & Time of Evaluation Date of Evaluation: 09/19/17 Time of Evaluation: 07:00 - Subjective Subjective: ? reaction to cipro switched to azactam and flagyl Objective - Vital Signs/Intake and Output Vital Signs (last 24 hours): Temp Pulse Resp BP Pulse Ox 98.3 F 50 L 20 116/54 L 95 09/19/17 07:00 09/19/17 07:00 09/19/17 07:00 09/19/17 07:00 09/19/17 07:00 Intake and Output: 09/19/17 09/19/17 06:59 18:59 Intake Total 1530 Balance 1530 - Medications Medications: Current Medications Cyanocobalamin (Vitamin B12 100 Mcg Tab) 500 mcg PO DAILY [facility] Last Admin: 09/19/17 10:03 Dose: 500 mcg Ergocalciferol (Drisdol 50,000 Intl Units Cap) 1 cap PO QWK [facility] Metronidazole (Flagyl) 500 mg in 100 mls @ 100 mls/hr IVPB Q8 [facility] Last Admin: 09/19/17 05:00 Dose: 100 mls/hr Aztreonam 1 gm/ Sodium (Chloride) 100 mls @ 100 mls/hr IVPB Q8H [facility] Last Admin: 09/19/17 09:59 Dose: 100 mls/hr Piperacillin Sod/Tazobactam (Sod 3.375 gm/ Sodium Chloride) 100 mls @ 100 mls/ hr IVPB Q6H [facility] Levothyroxine Sodium (Synthroid) 100 mcg PO DAILY@0630 [facility] Last Admin: 09/19/17 06:07 Dose: 100 mcg Loratadine (Claritin) 10 mg PO DAILY [facility] Last Admin: 09/19/17 09:59 Dose: 10 mg Losartan Potassium (Cozaar) 50 mg PO DAILY [facility] Last Admin: 09/19/17 09:59 Dose: 50 mg Multivitamins (Hexavitamin) 1 tab PO DAILY [facility] Last Admin: 09/19/17 09:59 Dose: 1 tab Pantoprazole Sodium (Protonix Ec Tab) 40 mg PO DAILY [facility] Prednisone (Prednisone Tab) 10 mg PO BID [facility] Last Admin: 09/19/17 09:59 Dose: 10 mg - Labs Labs: 09/19/17 07:21 09/19/17 07:21 PT 11.5 SECONDS (9.7-12.2) 09/17/17 04:04 INR 1.0 09/17/17 04:04 APTT 25 SECONDS (21-34) 09/17/17 04:04 Assessment and Plan (1) Abdominal pain Status: Acute (2) Acute diverticulitis Status: Acute
--- NOTE | 2017-09-19 16:36 | CP.PCM.PN ---
Subjective - Date & Time of Evaluation Date of Evaluation: 09/19/17 Time of Evaluation: 10:00 - Subjective Subjective: clinically same Objective - Vital Signs/Intake and Output Vital Signs (last 24 hours): Temp Pulse Resp BP Pulse Ox 98.3 F 50 L 20 116/54 L 95 09/19/17 07:00 09/19/17 07:00 09/19/17 07:00 09/19/17 07:00 09/19/17 07:00 Intake and Output: 09/19/17 09/19/17 06:59 18:59 Intake Total 1530 Balance 1530 - Medications Medications: Current Medications Cyanocobalamin (Vitamin B12 100 Mcg Tab) 500 mcg PO DAILY [facility] Last Admin: 09/19/17 10:03 Dose: 500 mcg Ergocalciferol (Drisdol 50,000 Intl Units Cap) 1 cap PO QWK [facility] Metronidazole (Flagyl) 500 mg in 100 mls @ 100 mls/hr IVPB Q8 [facility] Last Admin: 09/19/17 14:06 Dose: 100 mls/hr Aztreonam 1 gm/ Sodium (Chloride) 100 mls @ 100 mls/hr IVPB Q8H [facility] Last Admin: 09/19/17 09:59 Dose: 100 mls/hr Piperacillin Sod/Tazobactam (Sod 3.375 gm/ Sodium Chloride) 100 mls @ 100 mls/ hr IVPB Q6H [facility] Levothyroxine Sodium (Synthroid) 100 mcg PO DAILY@0630 [facility] Last Admin: 09/19/17 06:07 Dose: 100 mcg Loratadine (Claritin) 10 mg PO DAILY [facility] Last Admin: 09/19/17 09:59 Dose: 10 mg Losartan Potassium (Cozaar) 50 mg PO DAILY [facility] Last Admin: 09/19/17 09:59 Dose: 50 mg Multivitamins (Hexavitamin) 1 tab PO DAILY [facility] Last Admin: 09/19/17 09:59 Dose: 1 tab Pantoprazole Sodium (Protonix Ec Tab) 40 mg PO DAILY [facility] Prednisone (Prednisone Tab) 10 mg PO BID [facility] Last Admin: 09/19/17 09:59 Dose: 10 mg - Labs Labs: 09/19/17 07:21 09/19/17 07:21 PT 11.5 SECONDS (9.7-12.2) 09/17/17 04:04 INR 1.0 09/17/17 04:04 APTT 25 SECONDS (21-34) 09/17/17 04:04 - Constitutional Appears: Well - Head Exam Head Exam: ATRAUMATIC, NORMAL INSPECTION, NORMOCEPHALIC - Eye Exam Eye Exam: EOMI, Normal appearance, PERRL Pupil Exam: NORMAL ACCOMODATION, PERRL - ENT Exam ENT Exam: Mucous Membranes Moist, Normal Exam - Neck Exam Neck Exam: Full ROM, Normal Inspection. absent: Lymphadenopathy - Respiratory Exam Respiratory Exam: Decreased Breath Sounds - Cardiovascular Exam Cardiovascular Exam: REGULAR RHYTHM, +S1, +S2 - GI/Abdominal Exam GI & Abdominal Exam: Soft, Diminished Bowel Sounds - Rectal Exam Rectal Exam: Deferred
[2017-09-19] MEDS: Piperacillin/Tazobact 3.375 GM in Sodium Chloride 0.9% 100 ML IVPB SCH ×2 (18:30→19:14)
[2017-09-20] MEDS: Piperacillin/Tazobact 3.375 GM in Sodium Chloride 0.9% 100 ML IVPB SCH ×2 (00:33→05:14)
[2017-09-20] MEDS: Aztreonam 1 GM in Sodium Chloride 0.9% 100 ML IVPB SCH (02:05)
[2017-09-20] MEDS: metroNIDAZOLE IV 500 mg/100 ml 500 MG/100 ML BAG IVPB SCH (05:15)
[2017-09-20] MEDS: Levothyroxine 100 MCG TAB PO SCH (06:11)
[2017-09-20 07:29] LABS: BASO % 0.4 % (0.0-2.0); EOS % 0.1 % (0.0-4.0); HEMOGLOBIN 12.5 g/dL (11.0-16.0); LYMPH % 32.3 % (20.0-40.0); MEAN CELL VOLUME 85.6 fL (81.0-99.0); MEAN CORPUSCULAR HEMOGLOBIN 28.6 pg (27.0-31.0); MEAN CORPUSCULAR HGB CONC 33.5 g/dL (33.0-37.0); MEAN PLATELET VOLUME 11.3 fL (7.2-11.7); MONO # 0.4 K/uL (0.0-0.8); MONO % 5.9 % (0.0-10.0); NEUT # 3.8 K/uL (1.8-7.0); NEUT % 61.3 % (50.0-75.0); RBC 4.37 Mil/uL (3.80-5.20); WHITE BLOOD COUNT 6.2 K/uL (4.8-10.8)
[2017-09-20 07:55] LABS: ALB/GLOB RATIO 1.1 (1.0-2.1); ALBUMIN 3.8 g/dL (3.5-5.0); ALT/SGPT 25 U/L (9-52); AST/SGOT 19 U/L (14-36); BLOOD UREA NITROGEN 13 mg/dL (7-17); CALCIUM 8.3 mg/dl (8.6-10.4); GFR AFRICAN-AMERICAN > 60; GFR NON-AFRICAN AMERICAN > 60; MAGNESIUM 1.9 mg/dL (1.6-2.3)
[2017-09-20 08:39] VITALS: BP 135/86; PULSE 53; TEMP 98.1; O2SAT 98
--- NOTE | 2017-09-20 09:06 | CP.PCM.PN ---
Subjective - Date & Time of Evaluation Date of Evaluation: 09/20/17 Time of Evaluation: 09:05 - Subjective Subjective: Patient tolerating diet. Wants to go home. No pain, diarrhea or bleeding. Still on Azactam, Flagyl and Zosyn?? Objective - Vital Signs/Intake and Output Vital Signs (last 24 hours): Temp Pulse Resp BP Pulse Ox 98.1 F 53 L 20 135/86 98 09/20/17 08:38 09/20/17 08:38 09/20/17 08:38 09/20/17 08:38 09/20/17 08:38 Intake and Output: 09/20/17 09/20/17 06:59 18:59 Intake Total 1020 Balance 1020 - Medications Medications: Current Medications Cyanocobalamin (Vitamin B12 100 Mcg Tab) 500 mcg PO DAILY [facility] Last Admin: 09/19/17 10:03 Dose: 500 mcg Ergocalciferol (Drisdol 50,000 Intl Units Cap) 1 cap PO QWK [facility] Metronidazole (Flagyl) 500 mg in 100 mls @ 100 mls/hr IVPB Q8 [facility] Last Admin: 09/20/17 05:15 Dose: 100 mls/hr Aztreonam 1 gm/ Sodium (Chloride) 100 mls @ 100 mls/hr IVPB Q8H [facility] Last Admin: 09/20/17 02:05 Dose: 100 mls/hr Piperacillin Sod/Tazobactam (Sod 3.375 gm/ Sodium Chloride) 100 mls @ 100 mls/ hr IVPB Q6H [facility] Last Admin: 09/20/17 05:14 Dose: 100 mls/hr Levothyroxine Sodium (Synthroid) 100 mcg PO DAILY@0630 [facility] Last Admin: 09/20/17 06:11 Dose: 100 mcg Loratadine (Claritin) 10 mg PO DAILY [facility] Last Admin: 09/19/17 09:59 Dose: 10 mg Losartan Potassium (Cozaar) 50 mg PO DAILY [facility] Last Admin: 09/19/17 09:59 Dose: 50 mg Multivitamins (Hexavitamin) 1 tab PO DAILY [facility] Last Admin: 09/19/17 09:59 Dose: 1 tab Pantoprazole Sodium (Protonix Ec Tab) 40 mg PO DAILY [facility] Prednisone (Prednisone Tab) 10 mg PO BID [facility] Last Admin: 09/19/17 18:00 Dose: 10 mg - Labs Labs: 09/20/17 07:18 09/20/17 07:18 PT 11.5 SECONDS (9.7-12.2) 09/17/17 04:04 INR 1.0 09/17/17 04:04 APTT 25 SECONDS (21-34) 09/17/17 04:04 - Constitutional Appears: No Acute Distress - Head Exam Head Exam: ATRAUMATIC, NORMOCEPHALIC - Eye Exam Eye Exam: EOMI, PERRL. absent: Scleral icterus - Respiratory Exam Respiratory Exam: Clear to Ausculation Bilateral, NORMAL BREATHING PATTERN - Cardiovascular Exam Cardiovascular Exam: REGULAR RHYTHM, +S1 - GI/Abdominal Exam GI & Abdominal Exam: Soft, Normal Bowel Sounds. absent: Distended, Tenderness, Mass, Organomegaly - Extremities Exam Extremities Exam: Normal Inspection Assessment and Plan (1) Diverticulitis large intestine Assessment & Plan: Clinically improved and tolerating solid diet. Stable for discharge today on Augmentin/Flagyl for completion of ten day course or other antibiotics recommended by ID. Continue current diet. Follow up with me in 1-2 weeks. Will plan colonoscopy as out patient when colitis has resolved. Recall as needed. Status: Acute (2) LLQ abdominal pain Status: Resolved
[2017-09-20] MEDS ORDERED: Amoxicillin-Clav 875-125 mg Tab PO SCH (09:30)
[2017-09-20] MEDS: Multiple Vitamins Tab PO SCH (09:32)
--- NOTE | 2017-09-20 09:34 | CP.PCM.PN ---
Subjective - Date & Time of Evaluation Date of Evaluation: 09/20/17 Time of Evaluation: 09:31 - Subjective Subjective: PGY2 progress note for Dr. Wakefield Pt seen and examined at bedside. NO acute events overnight. Pt reports that her abd pain is significantly improved. Pt tolerating PO intake. Denies having any N/V. Pt had 1 well formed BM this morning. Denies having any F/C, CP, SOB , dysuria. 12 point ROS negative except for above mentioned. Objective - Vital Signs/Intake and Output Vital Signs (last 24 hours): Temp Pulse Resp BP Pulse Ox 98.1 F 53 L 20 135/86 98 09/20/17 08:38 09/20/17 08:38 09/20/17 08:38 09/20/17 08:38 09/20/17 08:38 Intake and Output: 09/20/17 09/20/17 06:59 18:59 Intake Total 1020 Balance 1020 - Medications Medications: Current Medications Cyanocobalamin (Vitamin B12 100 Mcg Tab) 500 mcg PO DAILY [facility] Last Admin: 09/19/17 10:03 Dose: 500 mcg Ergocalciferol (Drisdol 50,000 Intl Units Cap) 1 cap PO QWK [facility] Levothyroxine Sodium (Synthroid) 100 mcg PO DAILY@0630 [facility] Last Admin: 09/20/17 06:11 Dose: 100 mcg Loratadine (Claritin) 10 mg PO DAILY [facility] Last Admin: 09/19/17 09:59 Dose: 10 mg Losartan Potassium (Cozaar) 50 mg PO DAILY [facility] Last Admin: 09/19/17 09:59 Dose: 50 mg Multivitamins (Hexavitamin) 1 tab PO DAILY [facility] Last Admin: 09/19/17 09:59 Dose: 1 tab Pantoprazole Sodium (Protonix Ec Tab) 40 mg PO DAILY [facility] Prednisone (Prednisone Tab) 10 mg PO BID [facility] Last Admin: 09/19/17 18:00 Dose: 10 mg - Labs Labs: 09/20/17 07:18 09/20/17 07:18 PT 11.5 SECONDS (9.7-12.2) 09/17/17 04:04 INR 1.0 09/17/17 04:04 APTT 25 SECONDS (21-34) 09/17/17 04:04 - Constitutional Appears: Non-toxic, No Acute Distress - Head Exam Head Exam: ATRAUMATIC - ENT Exam ENT Exam: Mucous Membranes Moist - Respiratory Exam Respiratory Exam: Clear to Ausculation Bilateral. absent: Accessory Muscle Use , Rhonchi, Wheezes, Respiratory Distress - Cardiovascular Exam Cardiovascular Exam: REGULAR RHYTHM, +S1, +S2. absent: Gallop, Rubs, Murmur - GI/Abdominal Exam GI & Abdominal Exam: Soft, Normal Bowel Sounds. absent: Distended, Firm, Guarding, Rigid, Tenderness, Organomegaly - Extremities Exam Extremities Exam: absent: Pedal Edema, Tenderness - Neurological Exam Neurological Exam: Alert, Awake, Oriented x3 - Psychiatric Exam Psychiatric exam: Normal Affect, Normal Mood - Skin Skin Exam: Dry, Intact, Normal Color, Warm Assessment and Plan - Assessment and Plan (Free Text) Assessment: Diverticulitis Prior diverticulitis 2 months ago - treated with oral antibiotics, but failed therapy Previous EGD (05/2016): esophagitis, hiatal hernia and nonerosive gastritis CT A/P on admission (09/17/17): Diverticulitis of sigmoid without perforation. Small amt of free pelvic fluid (see full report) ID consulted GI consulted. Rec continuing PO abx flagyl and augmentin for 10 days. Also rec follow up outpt in 10 days and to set up a colonoscopy. HTN Well controlled Continue home Losartan 50mg PO Daily Hypothyroid Continue home Synthroid 100mcg PO Daily Vit D deficiency Ergo 50k 1 cap Qwkly (start 09/23/17) Hx of lupus ESR 62 Continue home Prednisone 10mg PO BID Thrombocytopenia Plt 100k today Hold heparin B12 Deficiency Continue home B12 500mcg PO Daily Prophylaxis SCDs Protonix 40mg PO daily HOLD anticoag due to low platelets All medical management per DR. Chelsea Wakefield Patient is stable for discharge per Dr. Wakefield Patient is to follow up with PMD upon discharge Patient is to follow up with GI, Dr. Romo in 10 days after discharge. Patient given referral for Dr. Romo Patient discharged with the following medications: Flagyl 500 mg PO TID x 10 days (#30 tabs), Augmentin 857/125 mg PO BID x 10 days (#20 tabs). Continue home medications as prescribed. Patient advised to eat diet high in fiber.
[2017-09-20] MEDS ORDERED: Pantoprazole 40 mg EC Tab PO SCH (10:00)
[2017-09-23] MEDS ORDERED: Ergocalciferol 50,000 Intl Units Cap PO SCH (10:00)
== END 2017-09-20 16:06 | disposition home or self-care (01) | DRG 392 ==
LOC: C.ER 01:43 → C.9E 06:57 → C.6T 11:22
PROVIDERS: ADMIT Internal Medicine Nephrology; ATTEND Internal Medicine Nephrology
DX: K57.32 Diverticulitis of large intestine without perforation or abscess without bleeding (principal); D69.3 Immune thrombocytopenic purpura; E03.9 Hypothyroidism, unspecified; E05.90 Thyrotoxicosis, unspecified without thyrotoxic crisis or storm; I10 Essential (primary) hypertension; M06.9 Rheumatoid arthritis, unspecified; L29.9 Pruritus, unspecified; T36.8X5A Adverse effect of other systemic antibiotics, initial encounter; E55.9 Vitamin D deficiency, unspecified

== ENCOUNTER 2017-11-28 06:33 | Day surgery (SDC) | payer MEDICARE, OTHER ==
[2017-11-27 13:53] VITALS: BMI 33.7
--- NOTE | 2017-11-28 07:54 | CP.SDSHP ---
Same Day Surgery H & P - History Proposed Procedure: colonoscopy Pre-Op Diagnosis: diverticulitis follow-up, recurrent - Previous Medical/Surgical History Cardiac: Hypertension Endocrine/Metabolic: Thyroid Disease, Obesity, Other (fatty liver/[facility]BRIDE) Misc: Other (fatty liver, SLE, DJD, diverticulitis x 2) Previous Surgical History: TOPx3 - Allergies Allergies: Allergies ciprofloxacin Allergy (Verified 09/18/17 11:59) ITCHING - Physical Exam Vital Signs: Vital Signs 11/28/17 11/28/17 07:13 07:42 Temperature 97.3 F L Pulse Rate 55 L 55 L Respiratory 20 Rate Blood Pressure 136/64 O2 Sat by Pulse 99 Oximetry Mental Status: Alert & Oriented x3 Neuro: WNL Heart: WNL Lungs: WNL GI: WNL - Impression Impression: Recurrent Diverticulitis, assessment for treatment Pt. Evaluated Today:Candidate for Anesthesia & Procedure: Yes - Date & Time Date: 11/28/17 Time: 07:54 Short Stay Discharge - Short Stay Discharge Admitting Diagnosis/Reason for Visit: DIVERTICULITIS OF LARGE LEFT LOWER QUADRANT, GERD Disposition: HOME/ ROUTINE
[2017-11-28] MEDS ORDERED: Propofol 10 mg/ml Inj (20 ML) ONE (07:59)
[2017-11-28] MEDS ORDERED: Lidocaine Hydrochloride 5 ML INJ ONE (08:00)
[2017-11-28 08:36] VITALS: TEMP 96.6
[2017-11-28 09:15] VITALS: O2SAT 98
[2017-11-28 09:38] VITALS: BP 116/53; PULSE 54; RESP 15
== END 2017-11-28 09:35 | disposition home or self-care (01) ==
LOC: C.ENDO 06:33
PROVIDERS: ATTEND Internal Medicine Gastroenterology
DX: D12.4 Benign neoplasm of descending colon (principal); K21.0 Gastro-esophageal reflux disease with esophagitis; K57.30 Diverticulosis of large intestine without perforation or abscess without bleeding; K64.1 Second degree hemorrhoids; I10 Essential (primary) hypertension; E66.9 Obesity, unspecified
CPT/HCPCS: 45380; 88305; J2704